=== PATIENT | male | born 1945 | race Caucasian/White ===

== ENCOUNTER → 2021-03-26 11:00 | Outpatient (BNVA) | payer MEDICARE, SELFPAY | PROVIDERS: PCP Internal Medicine; Visit Provider Psychiatry & Neurology Neurology | DX: G90.3 Multi-system degeneration of the autonomic nervous system (principal); G20 Parkinson's disease; F02.80 Dementia in other diseases classified elsewhere, unspecified severity, without behavioral disturbance, psychotic disturbance, mood disturbance, and anxiety; I95.1 Orthostatic hypotension; R44.3 Hallucinations, unspecified | CPT/HCPCS: 99212 ==

== ENCOUNTER → 2021-04-24 08:56 | Outpatient (BNVA) | payer MEDICARE, SELFPAY | PROVIDERS: PCP Internal Medicine; Visit Provider Psychiatry & Neurology Neurology | DX: G20 Parkinson's disease (principal); G90.3 Multi-system degeneration of the autonomic nervous system; I95.1 Orthostatic hypotension; R44.3 Hallucinations, unspecified; F02.80 Dementia in other diseases classified elsewhere, unspecified severity, without behavioral disturbance, psychotic disturbance, mood disturbance, and anxiety | CPT/HCPCS: 99212 ==

== ENCOUNTER → 2021-06-24 08:56 | Outpatient (BNVA) | payer MEDICARE, SELFPAY | PROVIDERS: PCP Internal Medicine; Visit Provider Psychiatry & Neurology Neurology | DX: G20 Parkinson's disease (principal); F02.80 Dementia in other diseases classified elsewhere, unspecified severity, without behavioral disturbance, psychotic disturbance, mood disturbance, and anxiety; G90.3 Multi-system degeneration of the autonomic nervous system; I95.1 Orthostatic hypotension; R44.3 Hallucinations, unspecified; Z79.899 Other long term (current) drug therapy | CPT/HCPCS: 99212 ==

== ENCOUNTER → 2021-10-14 14:18 | Outpatient (BNVA) | payer MEDICARE, SELFPAY | PROVIDERS: PCP Internal Medicine; Visit Provider Psychiatry & Neurology Neurology | DX: G90.3 Multi-system degeneration of the autonomic nervous system (principal); R44.3 Hallucinations, unspecified; G20 Parkinson's disease; F02.80 Dementia in other diseases classified elsewhere, unspecified severity, without behavioral disturbance, psychotic disturbance, mood disturbance, and anxiety | CPT/HCPCS: 99212 ==

== ENCOUNTER → 2022-01-20 12:52 | Outpatient (BNVA) | payer MEDICARE, SELFPAY | PROVIDERS: PCP Internal Medicine; Visit Provider Psychiatry & Neurology Neurology | DX: G20 Parkinson's disease (principal); F02.80 Dementia in other diseases classified elsewhere, unspecified severity, without behavioral disturbance, psychotic disturbance, mood disturbance, and anxiety; G90.3 Multi-system degeneration of the autonomic nervous system; R44.3 Hallucinations, unspecified; Z79.899 Other long term (current) drug therapy | CPT/HCPCS: 99212 ==

== ENCOUNTER → 2022-04-09 08:27 | Outpatient (BNVA) | payer MEDICARE, SELFPAY | PROVIDERS: PCP Internal Medicine; Visit Provider Psychiatry & Neurology Neurology | DX: G90.3 Multi-system degeneration of the autonomic nervous system (principal); G20 Parkinson's disease; F02.80 Dementia in other diseases classified elsewhere, unspecified severity, without behavioral disturbance, psychotic disturbance, mood disturbance, and anxiety; I95.1 Orthostatic hypotension; R44.3 Hallucinations, unspecified | CPT/HCPCS: 99212 ==

== ENCOUNTER 2022-12-22 15:32 | Outpatient (AMB) | payer MEDICARE, SELFPAY ==
--- NOTE | 2022-12-22 15:35 | A.OFFVIS_ITS ---
Intake Vital Signs 12/22/22 15:38 Height 5 ft 7 in BP 122/76 Blood Pressure Location Lt brachial Respiration 17 Pulse Source Pulse Oximeter Pulse Oximetry (%) 96 Oxygen Delivery Method Room Air Intake Visit Reasons: FOLLOW UP-confirmed Intake Note: Pt presents for 8 month follow up of dementia. Pt is her with [facility], she reports he had a fall in May of this year abd broke his hip and was in Rehab ([facility]) until the end of . She states his dementia is worse since he was last seen. He is still having trouble walking. Tree Wrapper Required: No Allergies No Known Allergies Allergy (Verified 12/22/22 15:45) HPI HPI Comments History of Present Illness Details 76y/o male with parkinsons disease and o rthostatic hypotension comes for follow up. He is very fatigued. His cognition is worse. He is at [facility] . His J tube and duopa were stopped about 6 mths ago. The LITHOGRAPH PRESS OPERATOR TINWARE try to walk him with walker twice a day with a gait belt No dyskinesias . He is confused and has hallucinations have increased he uses extra dose and takes oral dopamine at bedtimeHe goes for short walk outside with his walker. No falls . . He denies dizziness but has fatigue an d sleepiness Duopa is helping but his wants to hold the pump for few months . Hallucinations are better- not scary [facility] Medical History (Updated 12/22/22 @ 16:09 by Gloria Briscoe MD) Orthostatic hypotension Parkinson's disease without dyskinesia Hyperlipidemia Depression HTN (hypertension) Orthostatic hypotension Parkinsons disease Surgical History History of hip surgery H/O heart artery stent Family History Mother Depression Dementia Father Heart disease Social History Alcohol intake: never Patient Tobacco Use Status: Never used Tobacco Physical Exam Vital Signs: Last Vital Signs Resp 17 12/22/22 15:38 BP 122/76 12/22/22 15:38 Pulse Ox 96 12/22/22 15:38 Oxygen Delivery Method Room Air 12/22/22 15:38 Const Other: ANtecollis, fatigued General: cooperative and no acute distress Nutritional Appearance: average body habitus Neuro Other: Decreased facial expression and blink bradykinesia no tremors FFM decreased Gait not evaluated Speech- normal volume , confused Assessment & Plan Assessment & Plan (1) Dementia associated with Parkinson's disease: Code(s): G20 - Parkinson's disease; F02.80 - Dementia in other diseases classified elsewhere, unspecified severity, without behavioral disturbance, psychotic disturbance, mood disturbance, and anxiety (2) Parkinson's disease without dyskinesia: Code(s): G20.A1 - Parkinson's disease without dyskinesia, without mention of fluctuations (3) Hallucinations: Code(s): R44.3 - Hallucinations, unspecified (4) Orthostatic hypotension: Code(s): I95.1 - Orthostatic hypotension Plan Increase nuplazid 34 mg qhs sinemet 25/100 1 tab 5 times a day consider adding droxidopa 100mg tid - last dose 4 hrs before bedtime Continue midodrine 5mg tid Queatiapine 50mg qhs 25 mg bid Medications: New pimavanserin (Nuplazid) 34 mg PO DAILY 30 caps 6RF Discontinued carbidopa-levodopa 4.63-20 mg/mL (Duopa) Discontinued Reason: Patient no longer taking J-tube; 15ml morning dose and 4.8 ml continuous dose 700 mL 6RF pimavanserin (Nuplazid) Discontinued Reason: Doctor's Order 20 mg (2 x 10 mg) PO DAILY 60 tabs 6RF Coding Level of Care Code Est Pt Level 4 (67809) Diagnoses Dementia associated with Parkinson's disease G20; F02.80 Parkinson's disease without dyskinesia G20.A1 Hallucinations R44.3 Orthostatic hypotension I95.1
[2022-12-22 15:38] VITALS: BP 122/76; RESP 17; O2SAT 96
== END 2022-12-22 16:17 | disposition home or self-care (01) ==
PROVIDERS: PCP Internal Medicine; Visit Provider Psychiatry & Neurology Neurology
DX: G20.A1 Parkinson's disease without dyskinesia, without mention of fluctuations (principal); F02.82 Dementia in other diseases classified elsewhere, unspecified severity, with psychotic disturbance; I95.1 Orthostatic hypotension
CPT/HCPCS: 99214

== ENCOUNTER → 2022-12-22 15:32 | Outpatient (BNVA) | payer MEDICARE, SELFPAY | PROVIDERS: PCP Internal Medicine; Visit Provider Psychiatry & Neurology Neurology | DX: G20.A1 Parkinson's disease without dyskinesia, without mention of fluctuations (principal); F02.80 Dementia in other diseases classified elsewhere, unspecified severity, without behavioral disturbance, psychotic disturbance, mood disturbance, and anxiety; R44.3 Hallucinations, unspecified; I95.1 Orthostatic hypotension | CPT/HCPCS: 99212 ==

== ENCOUNTER → 2023-06-22 14:08 | Outpatient (BNVA) | payer MEDICARE, SELFPAY | PROVIDERS: PCP Internal Medicine; Visit Provider Psychiatry & Neurology Neurology ==

== ENCOUNTER 2023-10-21 20:50 | Outpatient (REF) | payer MEDICARE, SELFPAY | END 2023-10-21 20:51 | disposition home or self-care (01) | LOC: HO.WMHL 20:50 | DX: Z13.89 Encounter for screening for other disorder (principal) | CPT/HCPCS: 81001; 87086; 87088; 87186 ==

== ENCOUNTER 2024-03-19 11:37 | Outpatient (AMB) | payer MEDICARE, SELFPAY ==
--- NOTE | 2024-03-19 11:37 | A.OFFVIS_ITS ---
Intake Visit Reasons: Follow up Intake Note: patient presents for follow up Allergies No Known Allergies Allergy (Verified 03/19/24 11:38) HPI Comments Details: 77y/o male with Parkinsons Disease and Orthostatic Hypotension calls for follow up. 120 s evening 160 s systolic pressure. This is a video call and his and his POWER PLANT OPERATOR APPRENTICE Frances Santana participates in this video call. He reports toe curling - dystonia and is painful.He is accompanied by his and his Nurse practitioner. He is better in the mornings He walks in the morning with walker and with support when he has staff with him - needs 3 people. He is very fatigued in the afternoon. His cognition is worse. He is at [facility] . He is on OT and starting PT. No dyskinesias . [facility] Medical History Orthostatic hypotension Parkinson's disease without dyskinesia Hyperlipidemia Depression HTN (hypertension) Orthostatic hypotension Parkinsons disease Surgical History History of hip surgery H/O heart artery stent Family History Mother Depression Dementia Father Heart disease Social History Alcohol intake: never Patient Tobacco Use Status: Never used Tobacco Telehealth Telehealth Telehealth Platform: Telephone Location of provider rendering services: practice address Location of patient: address on file Patient Identification confirmed using: Name, : Yes Telehealth method: video Patient verbally consented to treatment: Yes Patient verbally consented to billing insurance company: Yes Patient informed of any privacy concerns related to visit: Yes Assessment & Plan Assessment & Plan (1) Dementia associated with Parkinson's disease: Code(s): G20 - Parkinson's disease; F02.80 - Dementia in other diseases classified elsewhere, unspecified severity, without behavioral disturbance, psychotic disturbance, mood disturbance, and anxiety Category: Medical (2) Parkinson's disease without dyskinesia: Code(s): G20.A1 - Parkinson's disease without dyskinesia, without mention of fluctuations Category: Medical Qualifiers: Fluctuating manifestations: with fluctuating manifestations Qualified Code(s): G20.A2 - Parkinson's disease without dyskinesia, with fluctuations (3) Hallucinations: Code(s): R44.3 - Hallucinations, unspecified Category: Medical (4) Orthostatic hypotension: Code(s): I95.1 - Orthostatic hypotension Category: Medical Plan nuplazid 34 mg qhs sinemet 25/100 2-1-1-1-2 Continue midodrine 5mg tid Queatiapine 50mg qhs 25 mg bid PT for neck Gauze between toes to prevent skin infections Medications: Changed From carbidopa-levodopa 25-100 mg 1-2 tabs orally 5 times a day; 330 tabs 6RF To carbidopa-levodopa 25-100 mg 2-1-1-1-2 orally 5 times a day; 330 tabs 6RF Coding Level of Care Code Tele Est Pt Level 4 (13156) Complex EM visit Add On G2211 Diagnoses Dementia associated with Parkinson's disease G20; F02.80 Parkinson's disease without dyskinesia, with fluctuating manifestations G20.A2 Fluctuating manifestations: with fluctuating manifestations Hallucinations R44.3 Orthostatic hypotension I95.1 Time Spent (min) 26
--- OUTSIDE RECORDS SUMMARY | 2024-03-19 16:32 | XMS_ITS | Clinical Summary ---
Author Organization [facility] Address [address] [place] [id number] Care Team Providers Care Clinic Manager Name Role Phone Lexx Atkinson MD Primary Care Provider [phone] Medical History Medical History Date Comments Essential hypertension DX:Essent ial hypertension Hyperlipidemia DX:Hyperlipidemi a Social History Tobacco Use Types Packs/Day Years Used Date Smoking Tobacco: Never Smokeless Tobacco: Never Alcohol Use Standard Drinks/Week Comments Never 0 (1 standard drink = 0.6 oz pur e alcohol) Sex and Gender Information Value Date Recorded Sex Assigned at Not on file Gender Identity Not on file Sexual Orientation Not on file Obstetrics History Last Filed Vital Signs Vital Sign Reading Time Taken Comments Blood Pressure - - Pulse - - Temperature - - Respiratory Rate - - Oxygen Saturation - - Inhaled Oxygen Concentration - - Weight 77.1 kg (170 lb) 07/03/2021 10:11 AM EDT Height 172.7 cm (5' 8 ) 07/03/2021 10:11 AM EDT Body Mass Index 25.85 07/03/2021 10:11 AM EDT Plan of Treatment Health Maintenance Due Date Last Done Comments Zoster Vaccines (1 of 2) 11/23/1995 Pneumococcal Vaccine: 65+ Ye ars (1 of 1 - PCV) 2010 RSV Immunization Patients 60 + Years Old (1 - 1-dose 75+ series) 2020 Cholesterol Screening (Lipid Panel) 01/19/2022 Depression Screening 01/19/2022 Falls Risk Assessment 01/19/2022 Hepatitis C Screening 01/19/2022 Social Influencers of Health Screening 01/19/2022 COVID-19 Vaccine (1 - 2023-2 5 season) 2023 Influenza Vaccine (#1) 2023 DTaP,Tdap,and Td Vaccines (2 - Td or Tdap) 06/02/2031 06/01/2021 HIB Vaccines Aged Out No longer eligi ble based on patient's age to complete this topic HPV Vaccines Aged Out No longer eligi ble based on patient's age to complete this topic Hepatitis A Vaccines Aged Out No long er eligible based on patient's age to complete this topic Hepatitis B Vaccines Aged Out No long er eligible based on patient's age to complete this topic IPV Vaccines Aged Out No longer eligi ble based on patient's age to complete this topic MMR Vaccines Aged Out No longer eligi ble based on patient's age to complete this topic Meningococcal ACWY Vaccine Aged Out N o longer eligible based on patient's age to complete this topic RSV Immunization Patients Un aida 20 months Aged Out No longer eligible b ased on patient's age to complete this topic Varicella Vaccines Aged Out No longer eligible based on patient's age to complete this topic Advance Directives Documents on File Type Date Recorded Patient Knit Goods Washer Expl anation Health Care Decision (hx) 06/30/2022 YASMIN PADILLA DIRECTIVE Care Teams Clinic Manager Relationship Specialty Start Date End Date Lexx Atkinson MD [address] [place] [address] PCP - General 04/01/22
--- OUTSIDE RECORDS SUMMARY | 2024-03-19 16:32 | XMS_ITS | Data Portability ---
Author Organization [facility] [address] Address [address] [place] [address] Assessment No assessment recorded. Plan of Treatment Reminders Order Date Submit Date Provider Last Modified By Organization Details Last Modified Time Details Appointments None recorded. Lab None recorded. Referral None recorded. Procedures None recorded. Surgeries None recorded. Imaging None recorded. Medication Orders triamcinolo ne acetonide 0.1 % topical cream 2022 023 [facility][id number], [address], [place], [address], 19:10:07 Patient TargetsNo targets recorded. Patient Instructions Encounter Date Encounter Id Patient Instructions Last Modified By Organization Details Last Modified Time 06/15/2022 [id number] Elevate injured extremity to help decrease swelling Ice the area 15 minutes every 3-4 hours ibuprofen and/or tylenol as needed for pain Follow up with [facility] or your pcp if the injury fails to heal in the coming weeks david Not available 06/15/2022 19:11:53 How can I take care of myself? Follow these important instructions: - Avoid further irritation of the skin where you have contact dermatitis. - Avoid further contact with the substance that appears to cause the dermatitis. - Put cool, moist cloths on the areas of skin with dermatitis. How can I help prevent contact dermatitis? - If you know what substance caused the dermatitis, make sure that the substance is not one of the ingredients in the cosmetic, cleaning, or other products that you use. If you are accidentally exposed to the substance, wash the exposed area immediately and thoroughly. If you are allergic to nickel, find out what metal is in jewelry before you wear it. Whether or not you know what substances give you the rash, it may be helpful to: - Learn to recognize poison oak, poison kyle, and ragweed, and avoid contact with them. - Use hypoallergenic cosmetics. - Pat your skin dry instead of rubbing it. - Try to avoid using solvents and chemicals, and wear heavy gloves when you must use them. - Use a line pilot, or wear rubber gloves when you wash dishes. Call office, return to UC or PCP, or go to ER if: - Persistence and worsening of symptoms even after withdrawal of irritating materials calls for medical attention. - Develop new symptoms such as fevers, chills, body aches, or feelings of illness [email or web address] Not available 06/15/2022 19:10:04 Reason for Referral None Reported. Problems Name Problem SNOMED Code Status Onset Date Resolution Date Notes Provider Name and Address Organization Details Recorded Time Parkinson's disease 68235010 Active 2022 THOM mcknight PA - [facility] 3 18:48:59 Hyperlipidemia 60352684 Active 2022 THOM mcknight PA - [facility] 3 18:49:18 Atrial fibrillation 98339151 Active 2022 THOM mcknight PA - [facility] 3 18:51:34 Problem Notes None recorded. Procedures Surgical History Date Name Laterality Status Provider Name and Address Organization Details Recorded Time cardiac ablation using fluoroscopy guidance completed THOM DELONG PA - [facility] 06/15/2022 18:50:41 placement of stent in pulmonary artery completed THOM DELONG PA - [facility] 06/15/2022 18:50:49 Imaging Results None recorded. Procedure Notes None recorded. Medical Equipment None Reported. Allergies No known drug allergies Medications Name Sig Start Date Stop Date Status Note LastModified by Organization Details LastModified Time amoxicillin 500 mg capsule TAKE 1 CAPSULE BY MOUTH 3 TIMES A DAY UNTIL FINISHED active Not Available Not Available No t Available atorvastati n 20 mg tablet TAKE 1 TABLET BY MOUTH EVERYDAY AT BEDTIME active Not Available Not Available No t Available tramadol 50 mg tablet TAKE HALF TO 1 TABLET BY MOUTH EVERY 6 HOURS NEEDED X7 DAYS 06/15 completed Not Available Not Available Not Available triamcinolo ne acetonide 0.1 % topical cream APPLY A THIN LAYER TO THE AFFECTED AREA(S) BY TOPICAL ROUTE 2 TIMES PER DAY x 14 days. 2022 active Not Available Not Available Not Avai lable citalopram 20 mg tablet TAKE 1 TABLET BY MOUTH EVERY DAY active Not Available Not Available No t Available tamsulosin 0.4 mg capsule TAKE 1 CAPSULE BY MOUTH EVERY EVENING active Not Available Not Available No t Available cephalexin 500 mg capsule TAKE 1 CAPSULE BY MOUTH THREE TIMES A DAY active Not Available Not Available No t Available midodrine 2.5 mg tablet TAKE 1 TABLET BY MOUTH 3 TIMES A DAY. ONCE AT 9 AM, THEN AT NOON, AND AGAIN AT 3PM active Not Available Not Available No t Available carbidopa 25 mg-levodopa 100 mg tablet TAKE 1-2 TABS BY MOUTH 5 TIMES A DAY active Not Available Not Available No t Available naproxen 500 mg tablet TAKE 1 TABLET BY MOUTH TWICE A DAY active Not Available Not Available No t Available GaviLyte-G 236 gram-22.74 gram-6.74 gram-5.86 gram oral solution TAKE 8 OUNCE BY MOUTH DIRECTED FOLLOW INSTRUCTI ONS PROVIDED BY OFFICE active Not Available Not Available No t Available Nuplazid 10 mg tablet active Not Available Not Available No t Available Paxlovid 300 mg (150 mg x 2)-100 mg tablets in a dose pack active Not Available Not Available Not Available Vitals Date Recorded Body height Provider Name an d Address Organization Details Last Updated DateTime 06/15/2022 172.72 cm THOM [employer]het Silvigen - [facility] 0 06/15/2022 18:46:42 Date Recorded Body mass index (BMI) Body weight Provider Name and Address Organization Details Last Updated DateTime 06/15/2022 26.6 kg/m2 94675.66 g THOM [employer]O PA - [facility] 06/15/2022 18:46:48 Date Recorded Oxygen saturation Oxygen saturation in Arterial blood by Pulse oximetry Provider Name and Address Organization Details Last Updated DateTime 06/15/2022 97 % 97 % THOM DELONG PA - [facility] 06/15/2022 18:46:58 Date Recorded Heart rate Provider Name an d Address Organization Details Last Updated DateTime 06/15/2022 92 /min THOM [employer] PA - [facility] 0 06/15/2022 18:47:03 Date Recorded Respiratory rate Provider Name a nd Address Organization Details Last Updated DateTime 06/15/2022 18 /min THOM DELONG PA - [facility] 0 06/15/2022 18:47:05 Date Recorded Body temperature Provider Name a nd Address Organization Details Last Updated DateTime 06/15/2022 97 [degF] THOM DELONG PA - [facility] 0 06/15/2022 18:47:08 Date Recorded Systolic blood pressure Diastolic blood pressure Provider Name and Address Organization Details Last Updated DateTime 06/15/2022 122 mm[Hg] 65 mm[Hg] THOM DELONG PA - [facility] 06/15/2022 18:46:55 Social History None recorded. Functional Status None recorded. Mental Status None recorded. Family History Nothing Reported. Medical History No medical history recorded. Past Encounters Encounter ID Performer Location Encounter Start Date Encounter Closed Date Diagnosis/Indication Diagnosis SNOMED-CT Code Diagnosis ICD10 Code Diagnosis [place] [id number] [place] [id number] [place] [address] 06/15/2022 18:25:56 06/15/2022 19:12:00 Erythematous rash 834625062 R21 Contusion of right chest wall 7355615723 0179706 S20.211A Patient to continue taking tylenol , Heat applicatio n as directed by emergency room. Health Concerns Section Related Observation LastModified by Organization Detai ls LastModified Time None Recorded Concern Status LastModified by Organization Details LastModified Time None Recorded Advance Directives Directive None Recorded Payers Encounter Date Sequence Insurance Name Policy Number Policy Anderson Covered Member ID Anderson Member ID Guarantor Name 06/15/2022 1 [place] (MEDICARE REPLACEMENT PPO) [id number] Derrek Valenzuela [id number] Derrek Valenzuela Notes Date Note Type Note Provider Name and Address Organization Details Recorded Time 06/15/2022 text/html UC Rash/Skin LesionReported bypatient.Location:[facility] Quality:itchy;red;sp reading Severity:mild Duration:6 months Context:chronic rash Alleviating Factors:steroid cream Magdy Ramirez NP [address] [place], [address], PA - [facility] 06/27/2022 18:12:35
--- OUTSIDE RECORDS SUMMARY | 2024-03-19 16:32 | XMS_ITS | Referral Summary ---
Author Organization [facility] Address [address] [place] [address] Care Team Providers Care Low Pressure Kettle Operator Name Role Phone Lexx Atkinson Primary Care Provider [phone] Allergies No known active allergies Medications atorvastatin (LIPITOR) 10 mg tablet 1 TAB(S) ONCE A DAY (AT BEDTIME) ORALLY 3 09/06/2016 Active escitalopram (LEXAPRO) 10 mg tablet Take 1 tablet (10 mg total) by mouth daily. 30 tablet 7 02/10/2017 Active carbidopa-levodo pa (SINEMET) 25-100 mg per tablet 3 tabs waking,2 tab morning,3 tab noon,2 tab afternoon,3 tabs evening, 2 tab before bed.At least 1/2 hour before or at least 1hr after meals 450 tablet 3 10/27/2017 Active Active Problems Problem Noted Date Diagnosed Date Parkinsonism 04/20/2017 Social History Tobacco Use Types Packs/Day Years Used Date Smoking Tobacco: Never Smokeless Tobacco: Never Sex and Gender Information Value Date Recorded Sex Assigned at Not on file Legal Sex Male 3:59 PM EDT Gender Identity Not on file Sexual Orientation Not on file Last Filed Vital Signs Vital Sign Reading Time Taken Comments Blood Pressure 107/53 08/09/2022 2:48 AM EDT Pulse 56 08/09/2022 2:48 AM EDT Temperature 36.6 ??C (97.9 ??F) 08/08/2022 9:50 PM ED T Respiratory Rate 16 08/09/2022 2:48 AM EDT Oxygen Saturation 96% 08/09/2022 2:48 AM EDT Inhaled Oxygen Concentration - - Weight 87.5 kg (193 lb) 08/08/2022 9:50 PM EDT Height 172.7 cm (5' 8 ) 08/04/2022 1:44 PM EDT Body Mass Index 29.35 08/04/2022 1:44 PM EDT Plan of Treatment Not on file Insurance BS MCR REPLACE PPO Advance Directives * DNR/DNI (Latest Code Status on File) Date Activated Date Inactivated Comments 08/04/2022 2:20 PM 08/04/2022 10:46 PM Care Teams Low Pressure Kettle Operator Relationship Specialty Start Date End Date Lexx Atkinson [address] [place] [id number] PCP - General Internal Medicine 08/08/22
--- OUTSIDE RECORDS SUMMARY | 2024-03-19 16:32 | XMS_ITS | Clinical Summary ---
Author Organization [facility] Address [address] [place] [address] Care Team Providers Care Linux Devops Engineer Name Role Phone Lexx Atkinson Primary Care Provider [phone] Allergies No known active allergies Medications atorvastatin [...] Problem Noted Date Diagnosed Date Parkinsonism 04/20/2017 Family History Medical History Relation Name Comments No Known Problems Mother Relation Name Status Comments Mother Social History Tobacco Use Types Packs/Day Years [...] 08/04/2022 1:44 PM EDT Plan of Treatment Health Maintenance Due Date Last Done Comments Hepatitis C Screening 1945 Zoster Vaccines (1 of 2) 11/23/1995 RSV Vaccine (60+ years old and patients) (1 - 1-dose 75+ series) 2020 Pneumococcal Vaccine: 65+ Years (2 of 2 - PPSV23 or PCV20) 08/27/2022 08/27/2021, 10/20/2017 COVID-19 Vaccine ( season) 2023 11/24/2021, 11/24/2021, 06/19/2021, Additional history exists Influenza Vaccine (#1) 2023 , 12/19/2020, 12/19/2020 Alcohol/Substance Use Screening 02/22/2024 Depression Screening and Follow-Up 02/22/2024 Health Care Proxy Review 02/22/2024 Social Drivers of Health Annual Screening 02/22/2024 DTaP,Tdap,and Td Vaccines (2 - Td or Tdap) 06/02/2031 06/01/2021 Hepatitis B Vaccines Aged Out No long er eligible based on patient's age to complete this topic Insurance BCBS MCR REPLACE PPO Advance Directives * DNR/DNI (Latest Code Status on File) Date Activated Date Inactivated Comments 08/04/2022 2:20 PM 08/04/2022 10:46 PM Care Teams Linux Devops Engineer Relationship Specialty Start Date End Date Lexx Atkinson [address] [place] [address] PCP - General Internal Medicine 08/08/22
--- OUTSIDE RECORDS SUMMARY | 2024-03-19 16:32 | XMS_ITS | Clinical Summary ---
Author Organization [facility] Address [address] [place] [address] Care Team Providers Care Gift Shop Manager Name Role Phone Unavailable Primary Care Provider Unavailabl e Social History Tobacco Use Types Packs/Day Years Used Date Smoking Tobacco: Never Assessed Sex and Gender Information Value Date Recorded Sex Assigned at Not on file Gender Identity Not on file Sexual Orientation Not on file Plan of Treatment Health Maintenance Due Date Last Done Comments Hepatitis C Virus Screening 1945 DTaP/Tdap/Td Vaccines (1 - Tdap) 1964 Pneumococcal Vaccines 50+ (1 of 1 - PCV) 11/23/1995 Zoster (Shingles) Vaccine (1 of 2) 11/23/1995 RSV Vaccine 60 years and old er and Patients (1 - 1-dose 75+ series) 2020 COVID-19 Vaccine ( - 2023-2 5 season) 2023 Hepatitis B Vaccines Aged Out No long er eligible based on patient's age to complete this topic
== END 2024-03-20 14:22 | disposition home or self-care (01) ==
LOC: HO.HSMS 11:37
PROVIDERS: PCP Internal Medicine; Visit Provider Psychiatry & Neurology Neurology
DX: G20.A2 Parkinson's disease without dyskinesia, with fluctuations (principal); F02.82 Dementia in other diseases classified elsewhere, unspecified severity, with psychotic disturbance; I95.1 Orthostatic hypotension
CPT/HCPCS: 99214; G2211

== ENCOUNTER 2024-09-25 14:03 | Outpatient (AMB) | payer MEDICARE, SELFPAY ==
--- NOTE | 2024-09-25 13:57 | MHC.OFFVIS ---
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 This is a video call and his and his GRILL [employer]P COOK Frances Santana participates in this video call. He reports toe curling - dystonia and is painful. He is better in the mornings He walks in the morning with walker and with support when he has staff with him - needs 3 people. He is very fatigued in the afternoon. His cognition is worse. He is at [facility] . He is on OT and starting PT. No dyskinesias . [facility] Medical History Orthostatic hypotension Parkinson's disease without dyskinesia Hyperlipidemia Depression HTN (hypertension) Orthostatic hypotension Parkinsons disease Surgical History History of hip surgery H/O heart artery stent Family History Mother Depression Dementia Father Heart disease Social History Alcohol intake: never Patient Tobacco Use Status: Never used Tobacco Physical Exam Const General: cooperative and healthy appearing Nutritional Appearance: average body habitus Orientation/consciousness: oriented to person Neuro General: oriented to person Telehealth Telehealth Telehealth Platform: Telephone Location of provider rendering services: practice address Location of patient: address on file Patient Identification confirmed using: Name, : Yes Telehealth method: video Patient verbally consented to treatment: Yes Patient verbally consented to billing insurance company: Yes Patient informed of any privacy concerns related to visit: Yes Assessment & Plan Assessment & Plan (1) Dementia associated with Parkinson's disease: Code(s): G20 - Parkinson's disease; F02.80 - Dementia in other diseases classified elsewhere, unspecified severity, without behavioral disturbance, psychotic disturbance, mood disturbance, and anxiety Category: Medical (2) Parkinson's disease without dyskinesia: Code(s): G20.A1 - Parkinson's disease without dyskinesia, without mention of fluctuations Category: Medical Qualifiers: Fluctuating manifestations: with fluctuating manifestations Qualified Code(s): G20.A2 - Parkinson's disease without dyskinesia, with fluctuations (3) Hallucinations: Code(s): R44.3 - Hallucinations, unspecified Category: Medical (4) Orthostatic hypotension: Code(s): I95.1 - Orthostatic hypotension Category: Medical Plan nuplazid 34 mg qhs sinemet 25/100 2-1-1-1-2 Continue midodrine 5mg tid trial inbrija 42 mg 2 inhalations as needed for toe dystonia Queatiapine 50mg qhs 25 mg bid PT for neck Gauze between toes to prevent skin infections Medications: New levodopa (Inbrija) 84 mg (2 x 42 mg) inhalation DAILY PRN 60 caplets 6RF foot dystonia Coding Level of Care Code Tele Est Pt Level 4 (77253) Diagnoses Dementia associated with Parkinson's disease G20; F02.80 Parkinson's disease without dyskinesia, with fluctuating manifestations G20.A2 Fluctuating manifestations: with fluctuating manifestations Hallucinations R44.3 Orthostatic hypotension I95.1
--- OUTSIDE RECORDS SUMMARY | 2024-09-25 14:46 | XMS_ITS | Clinical Summary ---
Author Organization [facility] Address [address] [place] [address] Care Team Providers Care Intelligence Consultant Name Role Phone Unavailable Primary Care Provider Unavailabl e Social History Tobacco Use Types Packs/Day Years Used Date Smoking Tobacco: Never Assessed Sex and Gender Information Value Date Recorded Sex Assigned at Not on file Legal Sex Male 3:53 PM EDT Gender Identity Not on file [...] - 1-dose 75+ series) 2020 COVID-19 Vaccine (2023-2 5 season) 2023 Hepatitis B Vaccines Aged Out No long er eligible based on patient's age to complete this topic
--- OUTSIDE RECORDS SUMMARY | 2024-09-25 14:46 | XMS_ITS | Clinical Summary ---
Author Organization [facility] Address [address] [place] [id number] Care Team Providers Care Mexican Food Cook Name Role Phone Lexx Atkinson MD Primary Care Provider [phone] Medical History Medical History Date Comments Essential hypertension DX:Essent ial hypertension Hyperlipidemia DX:Hyperlipidemi a Social History Tobacco Use Types Packs/Day Years Used Date Smoking Tobacco: Never Smokeless Tobacco: Never Alcohol Use Standard Drinks/Week Comments Never 0 (1 standard drink = 0.6 oz pur e alcohol) Sex and Gender Information Value Date Recorded Sex Assigned at Not on file Legal Sex Male 11:59 AM EST Gender Identity Not on file Sexual Orientation [...] Health Maintenance Due Date Last Done Comments Pneumococcal Vaccine: 50+ Ye ars (1 of 1 - PCV) 11/23/1995 Zoster Vaccines (1 of 2) 11/23/1995 RSV Immunization Adult Patie nts (1 - 1-dose 75+ series) 2020 Cholesterol Screening (Lipid Panel) 01/19/2022 Falls Risk Assessment 01/19/2022 Hepatitis C Screening 01/19/2022 Social Influencers of Health Screening 01/19/2022 COVID-19 Vaccine ( - 2023-2 5 season) 2023 Depression Screening 02/22/2024 Influenza Vaccine (#1) 2024 DTaP,Tdap,and Td Vaccines (2 - Td or [...] patient's age to complete this topic Meningococcal B Vaccine Aged Out No l onger eligible based on patient's age to complete this topic RSV Immunization Patients Un aida 20 months Aged Out No longer eligible b ased on patient's age to complete this topic Varicella Vaccines Aged Out No longer eligible based on patient's age to complete this topic Advance Directives Documents on File Type Date Recorded Patient Manager [employer] Expl anation Health Care Decision (hx) 06/30/2022 YASMIN PADILLA DIRECTIVE Care Teams Mexican Food Cook Relationship Specialty Start Date End Date Lexx Atkinson MD [address] [place] [address] PCP - General 04/01/22
--- OUTSIDE RECORDS SUMMARY | 2024-09-25 14:46 | XMS_ITS | Clinical Summary ---
Author Organization [facility] Address [address] [place] [address] Care Team Providers Care Regional Branch Manager Name Role Phone Lexx Atkinson Primary Care Provider [phone] Allergies No known active allergies Medications atorvastatin [...] 56 08/09/2022 2:48 AM EDT Temperature 36.6 C (97.9 F) 08/08/2022 9:50 PM EDT Respiratory Rate 16 08/09/2022 2:48 AM EDT [...] - 1-dose 75+ series) 2020 Pneumococcal Vaccine: 50+ Years (2 of 2 - PCV20 or PCV21) 08/27/2022 08/27/2021, 10/20/2017 COVID-19 Vaccine ( season) 2023 11/24/2021, 11/24/2021, 06/19/2021, Additional history exists Alcohol/Substance Use Screening 02/22/2024 Depression Screening and Follow-Up 02/22/2024 Health Care Proxy Review 02/22/2024 [employer] [facility] [employer] Annual Screening 02/22/2024 Influenza Vaccine (#1) 2024 , 12/19/2020, 12/19/2020 DTaP,Tdap,and Td Vaccines (2 - Td or Tdap) 06/02/2031 06/01/2021 Hepatitis B Vaccines Aged Out No long er eligible based on patient's age to complete this topic Insurance [employer] M[employer] REPLACE PPO Advance Directives * DNR/DNI (Latest Code Status on File) Date Activated Date Inactivated Comments 08/04/2022 2:20 PM 08/04/2022 10:46 PM Care Teams Regional Branch Manager Relationship Specialty Start Date End Date Lexx Atkinson [address] [place] [id number] PCP - General Internal Medicine 08/08/22
== END 2024-09-28 10:42 | disposition home or self-care (01) ==
LOC: HO.HSMS 14:03
PROVIDERS: PCP Internal Medicine; Visit Provider Psychiatry & Neurology Neurology
DX: G20.A2 Parkinson's disease without dyskinesia, with fluctuations (principal); F02.80 Dementia in other diseases classified elsewhere, unspecified severity, without behavioral disturbance, psychotic disturbance, mood disturbance, and anxiety; R44.3 Hallucinations, unspecified; I95.1 Orthostatic hypotension
CPT/HCPCS: 99214